=== PATIENT | female | born 1980 | race Caucasian/White ===

== ENCOUNTER 2018-05-02 18:32 | Outpatient (REF) | payer BC, SELFPAY ==
--- NOTE | 2018-05-02 16:30 | PAPFT_PTH ---
PATIENT: Nettie Qureshi LOC: [facility] U#:[id number] AGE/SX: 38/F ROOM: RE05/02/[address]: Elvira Keller : 1980 BED: DIS: 05/02/2018 SPEC #: [id number] RECD: 05/03/18 12:53 STATUS: BAO REQ #: [id number] DES: 05/02/18 16:[address]: Elvira Keller DEPT: [facility] Cytology RECD BY: Qi Garcia Tissues: 1 - CX/ENDOCX FOR PAP SMEARS Procedures: PAP THIN PREP/[facility] Screening Comments: [id number]
== END 2018-05-02 18:52 ==
LOC: NCHCN 18:32
PROVIDERS: PCP Family Medicine; Visit Provider Family Medicine
DX: Z12.4 Encounter for screening for malignant neoplasm of cervix (principal)
CPT/HCPCS: 88142

== ENCOUNTER 2022-05-11 15:03 | Outpatient (REF) | payer BC, SELFPAY ==
--- NOTE | 2022-05-11 14:00 | PAPFT_PTH ---
PATIENT: Nettie Qureshi LOC: [facility]#:[id number] AGE/SX: 42/F ROOM: RE05/11/[address]: Elvira Keller : 1980 BED: DIS: 05/11/2022 SPEC #: [id number] RECD: 05/12/22 12:46 STATUS: BAO REQ #: [id number] DES: 05/11/22 14:[address]: Elvira Keller DEPT: [facility] Cytology RECD BY: Qi Garcia Tissues: 1 - CX/ENDOCX FOR PAP SMEARS Procedures: PAP THIN PREP/[facility] Screening HPV DNA PROBE Comments: [id number] (HPV 16 & 18/45)
[2022-05-11 21:07] LABS: TSH (W/Ref FT4) 1.08 uIU/mL (0.36-3.74)
== END 2022-05-11 15:04 | disposition home or self-care (01) ==
LOC: NCHCN 15:03
PROVIDERS: PCP Family Medicine; Visit Provider Family Medicine
DX: Z00.00 Encounter for general adult medical examination without abnormal findings (principal); Z12.4 Encounter for screening for malignant neoplasm of cervix; Z87.42 Personal history of other diseases of the female genital tract; Z13.29 Encounter for screening for other suspected endocrine disorder; Z83.49 Family history of other endocrine, nutritional and metabolic diseases; R87.611 Atypical squamous cells cannot exclude high grade squamous intraepithelial lesion on cytologic smear of cervix (ASC-H); Z11.51 Encounter for screening for human papillomavirus (HPV); R87.810 Cervical high risk human papillomavirus (HPV) DNA test positive
CPT/HCPCS: 88142; 84443; 87624

== ENCOUNTER 2023-03-24 14:04 | Outpatient (REF) | payer BC, SELFPAY ==
--- NOTE | 2023-03-24 13:20 | PAPFT_PTH ---
PAT[facility]: [facility]ureshi [id number]GE/SX: 43/F ROOM: RE03/24/[address]: Elvira Keller : 1980 BED: DIS: 03/24/2023 SPEC #: [id number] RECD: 03/27/23 13:01 STATUS: BAO BO #: [id number] DES: 03/24/23 13:[address]: Elvira Keller DEPT: [facility] Cytology RECD BY: Qi Garcia Tissues: 1 - CX/ENDOCX FOR PAP SMEARS Procedures: PAP THIN PREP/[facility] Screening HPV DNA PROBE Comments: [id number] (CHLAMYDIA/GC)
[2023-03-28 14:44] LABS: Chlamydia Result Negative (Negative); GC Result Negative (Negative)
== END 2023-03-24 14:05 | disposition home or self-care (01) ==
LOC: NCHCN 14:04
PROVIDERS: PCP Family Medicine; Visit Provider Family Medicine
DX: Z12.4 Encounter for screening for malignant neoplasm of cervix (principal); Z11.3 Encounter for screening for infections with a predominantly sexual mode of transmission; R87.610 Atypical squamous cells of undetermined significance on cytologic smear of cervix (ASC-US); Z11.51 Encounter for screening for human papillomavirus (HPV)
CPT/HCPCS: 87491; 87591; 88142; 87624

== ENCOUNTER 2023-12-28 11:12 | Outpatient (REF) | payer BC, SELFPAY ==
--- NOTE | 2023-12-28 16:30 | PAPFT_PTH ---
PATIENT: Nettie Qureshi LOC: [facility]#:[id number] AGE/SX: 43/F ROOM: RE12/28/[address]: AMADEO: 1980 BED: DIS: 12/28/2023 SPEC #: [id number] RECD: 12/29/23 12:38 STATUS: ESTERJovita REQ #: [id number] DES: 12/28/23 16:[address]: Stephanie Antonio DEPT: [facility] Cytology RECD BY: Ivana Murphy ENTERED: 12/29/23 12:40 SP TYPE: PAPFT COLTEN DR: Elvira Keller Tissues: 1 - CX/ENDOCX FOR PAP SMEARS Procedures: PAP THIN PREP/[facility] Screening HPV DNA PROBE Comments: [id number] (HPV 16 & 18/45)
== END 2023-12-28 11:13 | disposition home or self-care (01) ==
LOC: NCHCN 11:12
PROVIDERS: PCP Family Medicine; Visit Provider Family Medicine
DX: Z12.4 Encounter for screening for malignant neoplasm of cervix (principal)
CPT/HCPCS: 88142; 87624